=== PATIENT | female | born 1985 | race Caucasian/White ===

== ENCOUNTER 2017-10-10 10:04 | Emergency (ER) | payer OTHER ==
[2017-10-10 10:13] VITALS: O2SAT 100
[2017-10-10] MEDS ORDERED: Pantoprazole 40 mg EC Tab PO STA (10:39)
[2017-10-10] MEDS ORDERED: Sodium Chloride 0.9% 1,000 ML IV ONE (10:39)
[2017-10-10 10:40] LABS: SQUAMOUS EPITHIAL 2 /hpf (0-5); URINE BILIRUBIN NEGATIVE (NEGATIVE); URINE BLOOD NEGATIVE (NEGATIVE); URINE CLARITY Clear (Clear); URINE COLOR Yellow (YELLOW); URINE GLUCOSE (UA) NORMAL (Normal); URINE LEUKOCYTE ESTERASE NEG Leu/uL (Negative); URINE NITRATE NEGATIVE (NEGATIVE); URINE PROTEIN NEGATIVE (NEGATIVE); URINE UROBILINOGEN NORMAL mg/dL (0.2-1.0)
[2017-10-10 10:41] LABS: HCG,QUALITATIVE URINE NEGATIVE (NEGATIVE)
[2017-10-10] MEDS ORDERED: Sodium Chloride 0.9% 1,000 ML ONE (10:42)
[2017-10-10] MEDS ORDERED: Pantoprazole 40 mg EC Tab PO ONE (10:52)
--- NOTE | 2017-10-10 10:58 | C.PDOC ---
History Of Present Illness 31 year old female w/PMhx of gastritis presents to the ED for evaluation of epigastric abdominal pain which has been intermittent for the past 5-6 days. Patient states pain is associated with nausea and few sporadic episodes of non- bilious vomiting. Otherwise, Patient denies fever, chills, recent illness, sore throat, CP, SOB, dysnea, diaphoresis, palpitation, hematemesis, melena, dysuria , hematuria, back pain. Ambulate to Ed for evaluation, not in nay apparent distress.. Time Seen by Provider: 10/10/17 10:21 Chief Complaint (Nursing): Abdominal Pain History Per: Patient History/Exam Limitations: no limitations Onset/Duration Of Symptoms: Intermittent Episodes Current Symptoms Are (Timing): Still Present Location Of Pain/Discomfort: Epigastric Radiation Of Pain To:: None Quality Of Discomfort: "Pain" Associated Symptoms: Nausea, Vomiting Additional History Per: Patient Past Medical History Reviewed: Historical Data, Nursing Documentation, Vital Signs Vital Signs: Last Vital Signs Temp 97.5 F L 10/10/17 12:58 Pulse 59 L 10/10/17 12:58 Resp 20 10/10/17 12:58 BP 99/64 L 10/10/17 12:58 Pulse Ox 100 10/10/17 12:58 - Medical History PMH: Gastritis Surgical History: No Surg Hx Family History: States: Unknown Family Hx - Social History Hx Tobacco Use: No Hx Alcohol Use: No Hx Substance Use: No - Immunization History Hx Tetanus Toxoid Vaccination: No Hx Influenza Vaccination: No Hx Pneumococcal Vaccination: No Review Of Systems Except As Marked, All Systems Reviewed And Found Negative. Constitutional: Negative for: Fever, Chills Cardiovascular: Negative for: Chest Pain, Palpitations, Edema, Light Headedness Respiratory: Negative for: Cough, Shortness of Breath, Wheezing Gastrointestinal: Positive for: Nausea, Vomiting, Abdominal Pain (epigastric ) Genitourinary: Negative for: Dysuria, Hematuria Musculoskeletal: Negative for: Neck Pain, Back Pain Skin: Negative for: Rash Neurological: Negative for: Altered Mental Status Physical Exam - Physical Exam Appears: Non-toxic, No Acute Distress Skin: Normal Color, Warm, Dry Head: Atraumatic, Normacephalic Eye(s): bilateral: Normal Inspection Oral Mucosa: Moist Neck: Supple Chest: Symmetrical, No Deformity, No Tenderness Cardiovascular: Rhythm Regular, No Murmur Respiratory: Normal Breath Sounds, No Rales, No Rhonchi, No Wheezing Gastrointestinal/Abdominal: Soft, Tenderness (moderate, epigastric ), No Guarding, No Rebound Extremity: Normal ROM, Capillary Refill (less than 2 seconds ) Neurological/Psych: Oriented x3, Normal Speech, Normal Cognition Gait: Steady ED Course And Treatment - Laboratory Results Result Diagrams: 10/10/17 11:04 10/10/17 11:04 Lab Interpretation: Normal ECG: Interpreted By Me, Viewed By Me ECG Rhythm: Sinus Bradycardia Interpretation Of ECG: Sinus gricel@52/min, NAD, no acute T wave or ST-T changes. O2 Sat by Pulse Oximetry: 100 (on RA) Pulse Ox Interpretation: Normal Progress Note: Bloodwork and urinalysis ordered and reviewed. Carafate PO, Pepcid IVP, Protonix PO, Zofran IVP and IV Fluids administered. Pt was OBS in Ed for 3 hours and remained stable. On re-evaluation, pt is afebrile, hemodynamicaly stable. Non-toxic. Tolerate Po well in Ed. Ambulatory in Ed with stable gait. PulseOx 100% RA. ENT: no acute findings. neck: Supple, (-) midline tenderness, (-) JVD, (-) carotid bruits B/L. Lungs: CTA B/L, BS equal B /L. CVS: (+)S1S2, reg. Abd: benign, (-) guarding or rebound, (-) localized tenderness. Back: (-) CVA tenderness. Blood work review, appears normal. UA normal, (-) preg. Pt has clinical findings c/w epigastric pain. Pt advised. ref. to F/u with PMD, GI in2 -3 days for re-eavl. return to ED if any worsening ornew changes. Disposition Counseled Patient/Family Regarding: Studies Performed, Diagnosis, Need For Followup, Rx Given - Disposition Referrals: Juan Oglesby MD [Staff Provider] - Luke Balderas MD [Medical Doctor] - Disposition: HOME/ ROUTINE Disposition Time: 12:23 Condition: STABLE Additional Instructions: DIET RESTRICTION FOR `1-2 DAYS ENCOURAGE FLUIDS TAKE MEDICATION PRESCRIBED FOLLOW UP WITH PMD, GI IN 2-3 DAYS FOR RE-EVALUATION. RETURN TO ED IF ANY WORSENING OR NEW CHANGES. Prescriptions: Famotidine [Pepcid] 20 mg PO BID #14 tab Mag Hydrox/Aluminum Hyd/Simeth [Mag-Al Plus Xs Suspension] 30 ml PO BID #350 ml Pantoprazole Sodium [Protonix] 40 mg PO DAILY #14 tablet. Instructions: Epigastric Pain (ED) Forms: [employer] (Upper Sorbian), Work Excuse Print Language: VENEZUELAN - Clinical Impression Clinical Impression: Epigastric abdominal pain - PA / BRICK BAKER / Resident Statement MD/DO has reviewed & agrees with the documentation as recorded. - Scribe Statement The provider has reviewed the documentation as recorded by the Scribe (Kathleen Thomas) All medical record entries made by the Scribe were at my direction and personally dictated by me. I have reviewed the chart and agree that the record accurately reflects my personal performance of the history, physical exam, medical decision making, and the department course for this patient. I have also personally directed, reviewed, and agree with the discharge instructions and disposition.
[2017-10-10 11:13] LABS: BASO % 0.5 % (0.0-2.0); EOS # 0.1 K/uL (0.0-0.7); EOS % 1.9 % (0.0-4.0); HEMOGLOBIN 12.2 g/dL (11.0-16.0); LYMPH # 1.7 K/uL (1.0-4.3); LYMPH % 25.1 % (20.0-40.0); MEAN CELL VOLUME 90.5 fL (81.0-99.0); MEAN CORPUSCULAR HEMOGLOBIN 30.2 pg (27.0-31.0); MEAN CORPUSCULAR HGB CONC 33.4 g/dL (33.0-37.0); MEAN PLATELET VOLUME 10.1 fL (7.2-11.7); MONO # 0.5 K/uL (0.0-0.8); MONO % 7.5 % (0.0-10.0); NEUT # 4.3 K/uL (1.8-7.0); NRBC % 0.1 % (0.0-2.0); RBC 4.04 Mil/uL (3.80-5.20); RED CELL DISTRIBUTION WIDTH 13.5 % (11.5-14.5); WHITE BLOOD COUNT 6.7 K/uL (4.8-10.8)
[2017-10-10 11:33] LABS: ALB/GLOB RATIO 1.2 (1.0-2.1); ALBUMIN 4.2 g/dL (3.5-5.0); ALT/SGPT 35 U/L (9-52); AST/SGOT 26 U/L (14-36); BLOOD UREA NITROGEN 8 mg/dL (7-17); CALCIUM 8.5 mg/dl (8.6-10.4); GFR AFRICAN-AMERICAN > 60; GFR NON-AFRICAN AMERICAN > 60; LIPASE 38 U/L (23-300)
[2017-10-10 12:59] VITALS: BP 99/64; PULSE 59; RESP 20; TEMP 97.5
[2017-10-10] MEDS ORDERED: Alum-Mag Hydrox-Simethicone Susp (30 mL) PO STA (13:01)
[2017-10-10] MEDS ORDERED: Aluminum Hydroxide/Magnesium Hydroxide Susp (30 mL) ONE (13:09)
--- NOTE | 2017-10-11 14:59 | CARD ---
APPROVED REPORT EKG Measurement Heart [id number] <Conclusion> Sinus bradycardia with sinus arrhythmia Otherwise normal ECG
== END 2017-10-10 14:29 | disposition home or self-care (01) ==
LOC: C.ER 10:04
DX: R10.13 Epigastric pain (principal)
CPT/HCPCS: 80053; 81001; 83690; 84703; 85025; 93005; 96361; 96374; 96375; 99285; J2405; J7040

== ENCOUNTER 2017-11-21 07:05 | Day surgery (SDC) | payer OTHER ==
[2017-11-21 07:46] VITALS: BMI 25.4
[2017-11-21 08:31] VITALS: O2SAT 100
[2017-11-21] MEDS ORDERED: Propofol 10 mg/ml Inj (20 ML) ONE (09:36)
[2017-11-21] MEDS ORDERED: Midazolam 2 MG/2 ML VIAL ONE (09:36)
[2017-11-21] MEDS ORDERED: Belladonna-Phenobarbital PO STA (09:38)
--- NOTE | 2017-11-21 09:38 | CP.SDSHP ---
Same Day Surgery H & P - History Proposed Procedure: EGD Pre-Op Diagnosis: SEE NOTES - Previous Medical/Surgical History Misc: Other Pain: 4.Moderate Pain - Allergies Allergies: Allergies FISH Allergy (Mild, Verified 11/21/17 07:45) RASH DUST Allergy (Mild, Uncoded 11/21/17 07:45) RASH KIWI Allergy (Mild, Uncoded 11/21/17 07:45) RASH - Physical Exam General Appearance: N Vital Signs: Vital Signs 11/21/17 08:10 Temperature 98.2 F Pulse Rate 80 Respiratory 20 Rate Blood Pressure 105/70 O2 Sat by Pulse 100 Oximetry Mental Status: Alert & Oriented x3 Neuro: WNL Heart: WNL Lungs: WNL GI: Other - {Optional Preform as Required} Breast: WNL Abdomen: Other Rectal: Other Integument: WNL : WNL Ortho: WNL ENT: WNL - Impression Pt. Evaluated Today:Candidate for Anesthesia & Procedure: Yes - Date & Time Time: 09:38 Short Stay Discharge - Short Stay Discharge Admitting Diagnosis/Reason for Visit: FUNCTIONAL DYSPEPSIA Disposition: HOME/ ROUTINE
[2017-11-21] MEDS ORDERED: Lidocaine Hydrochloride 5 ML INJ ONE (09:42)
[2017-11-21] MEDS ORDERED: Lactated Ringer's 500 ML IV SCH (09:45)
[2017-11-21 10:50] VITALS: TEMP 98
[2017-11-21 12:38] VITALS: BP 112/68; PULSE 66; RESP 14
== END 2017-11-21 11:05 | disposition home or self-care (01) ==
LOC: C.ENDO 07:05
PROVIDERS: ATTEND Specialist
DX: K29.50 Unspecified chronic gastritis without bleeding (principal); K26.9 Duodenal ulcer, unspecified as acute or chronic, without hemorrhage or perforation; K92.89 Other specified diseases of the digestive system; K30 Functional dyspepsia; R11.2 Nausea with vomiting, unspecified; K44.9 Diaphragmatic hernia without obstruction or gangrene
CPT/HCPCS: 43239; 84703; 88305; J2250; J2704; J7120

== ENCOUNTER 2018-04-24 07:44 | Day surgery (SDC) | payer OTHER ==
[2018-04-24 08:19] VITALS: O2SAT 100
[2018-04-24] MEDS ORDERED: Propofol 10 mg/ml Inj (20 ML) ONE (09:08)
--- NOTE | 2018-04-24 09:08 | CP.SDSHP ---
Same Day Surgery H & P - History Proposed Procedure: EGD Pre-Op Diagnosis: SEE NOTES - Previous Medical/Surgical History Neuro: Other Misc: Other Pain: 4.Moderate Pain - Allergies Allergies: Allergies FISH Allergy (Mild, Verified 11/21/17 07:45) RASH DUST Allergy (Mild, Uncoded 11/21/17 07:45) RASH KIWI Allergy (Mild, Uncoded 11/21/17 07:45) RASH - Physical Exam General Appearance: N Vital Signs: Vital Signs 04/24/18 08:12 Temperature 97.8 F Pulse Rate 66 Respiratory 18 Rate Blood Pressure 100/60 O2 Sat by Pulse 100 Oximetry Mental Status: Alert & Oriented x3 Neuro: WNL Heart: WNL Lungs: WNL GI: Other - {Optional Preform as Required} Breast: WNL Abdomen: Other Integument: WNL : WNL Ortho: WNL ENT: WNL - Impression Pt. Evaluated Today:Candidate for Anesthesia & Procedure: Yes - Date & Time Time: 09:08 Short Stay Discharge - Short Stay Discharge Admitting Diagnosis/Reason for Visit: GASTRIC ULCER, UNSP ACUTE OR CHRONIC, W /O HEMOR Disposition: HOME/ ROUTINE
[2018-04-24] MEDS ORDERED: Belladonna-Phenobarbital PO STA (09:09)
[2018-04-24] MEDS ORDERED: Lactated Ringer's 1,000 ML IV ONE (09:10)
[2018-04-24 09:43] VITALS: TEMP 97.9
[2018-04-24 10:21] VITALS: BP 101/71; PULSE 60; RESP 14
== END 2018-04-24 10:30 | disposition home or self-care (01) ==
LOC: C.ENDO 07:44
PROVIDERS: ATTEND Specialist
DX: K25.9 Gastric ulcer, unspecified as acute or chronic, without hemorrhage or perforation (principal); K29.70 Gastritis, unspecified, without bleeding; K44.9 Diaphragmatic hernia without obstruction or gangrene; K20.9 Esophagitis, unspecified
CPT/HCPCS: 43239; 84703; 88305; 88342; J2001; J2704; J3010; J7120

== ENCOUNTER 2018-04-26 17:21 | Emergency (ER) | payer OTHER ==
[2018-04-26] MEDS ORDERED: Sodium Chloride 0.9% 1,000 ML IV ONE (18:27)
[2018-04-26] MEDS ORDERED: Sodium Chloride 0.9% 1,000 ML ONE (18:50)
[2018-04-26 18:58] LABS: SQUAMOUS EPITHIAL 5 /hpf (0-5); URINE BACTERIA OCC (<OCC); URINE BILIRUBIN NEGATIVE (NEGATIVE); URINE BLOOD NEGATIVE (NEGATIVE); URINE CLARITY Clear (Clear); URINE COLOR Straw (YELLOW); URINE GLUCOSE (UA) NORMAL (Normal); URINE LEUKOCYTE ESTERASE 3+ Leu/uL (Negative); URINE PROTEIN NEGATIVE (NEGATIVE); URINE UROBILINOGEN NORMAL mg/dL (0.2-1.0)
[2018-04-26 19:02] LABS: BASO # 0.1 K/uL (0.0-0.2); BASO % 0.6 % (0.0-2.0); EOS # 0.2 K/uL (0.0-0.7); EOS % 1.8 % (0.0-4.0); HEMOGLOBIN 12.5 g/dL (11.0-16.0); LYMPH # 2.5 K/uL (1.0-4.3); MEAN CELL VOLUME 90.4 fL (81.0-99.0); MEAN CORPUSCULAR HEMOGLOBIN 30.7 pg (27.0-31.0); MEAN PLATELET VOLUME 10.6 fL (7.2-11.7); MONO # 0.7 K/uL (0.0-0.8); MONO % 7.5 % (0.0-10.0); NEUT # 6.4 K/uL (1.8-7.0); NEUT % 65.1 % (50.0-75.0); RBC 4.06 Mil/uL (3.80-5.20); RED CELL DISTRIBUTION WIDTH 13.3 % (11.5-14.5); WHITE BLOOD COUNT 9.8 K/uL (4.8-10.8)
[2018-04-26 19:04] LABS: ALBUMIN 4.7 g/dL (3.5-5.0); BLOOD UREA NITROGEN 12 mg/dL (7-17); CALCIUM 9.5 mg/dl (8.6-10.4); GFR AFRICAN-AMERICAN > 60; GFR NON-AFRICAN AMERICAN > 60
[2018-04-26 19:05] LABS: ALB/GLOB RATIO 1.5 (1.0-2.1); ALT/SGPT 62 U/L (9-52); AST/SGOT 45 U/L (14-36); BILIRUBIN,DIRECT 0.3 mg/dL (0.0-0.4); LIPASE 51 U/L (23-300)
[2018-04-26 19:11] LABS: INR 1.1; PROTHROMBIN TIME 11.5 SECONDS (9.7-12.2)
--- NOTE | 2018-04-26 19:36 | C.PDOC ---
History Of Present Illness 32 y/o female comes in to the ED with complaints of abdominal pain for the last few days. Patient states she recently had an endoscopy with Dr. Dowd showing ulcers. She denies any associated fevers, vomiting, or diarrhea. Time Seen by Provider: 04/26/18 18:25 Chief Complaint (Nursing): Abdominal Pain History Per: Patient History/Exam Limitations: no limitations Onset/Duration Of Symptoms: Days Current Symptoms Are (Timing): Still Present Past Medical History Reviewed: Historical Data, Nursing Documentation, Vital Signs Vital Signs: Last Vital Signs Temp 98.5 F 04/26/18 21:14 Pulse 64 04/26/18 21:14 Resp 16 04/26/18 21:14 BP 108/72 04/26/18 21:14 Pulse Ox 100 04/26/18 21:51 - Medical History PMH: Asthma (ENVIROMENTAL ALLERGIES SOB AT TIMES), Fractures (LEFT HUMERUS MANY YEARS AGO), Gastritis, Migraine Denies: Colonic Polyps, Chronic Kidney Disease, Sleep Apnea Surgical History: Endoscopy Family History: States: Unknown Family Hx - Social History Hx Tobacco Use: No Hx Alcohol Use: No Hx Substance Use: No - Immunization History Hx Tetanus Toxoid Vaccination: No Hx Influenza Vaccination: No Hx Pneumococcal Vaccination: No Review Of Systems Except As Marked, All Systems Reviewed And Found Negative. Constitutional: Negative for: Fever, Chills Gastrointestinal: Positive for: Abdominal Pain. Negative for: Vomiting, Diarrhea, Hematochezia Genitourinary: Negative for: Dysuria Musculoskeletal: Negative for: Back Pain Physical Exam - Physical Exam Appears: Non-toxic, No Acute Distress Skin: Normal Color, Warm, Dry Head: Atraumatic, Normacephalic Eye(s): bilateral: Normal Inspection, PERRL, EOMI Oral Mucosa: Moist Neck: Normal ROM Chest: Symmetrical Cardiovascular: Rhythm Regular, No Murmur Respiratory: Normal Breath Sounds, No Rales, No Rhonchi, No Wheezing Gastrointestinal/Abdominal: Soft, Tenderness (to epigastrium), No Guarding, No Rebound Back: Normal Inspection Extremity: Bilateral: Atraumatic, Normal ROM Neurological/Psych: Oriented x3, Normal Speech ED Course And Treatment - Laboratory Results Result Diagrams: 04/26/18 18:48 04/26/18 18:48 O2 Sat by Pulse Oximetry: 100 (RA) Pulse Ox Interpretation: Normal Medical Decision Making Medical Decision Making: Impression: Upper abdominal pain, known hx of ulcers ro post endoscopy complication/perft Initial Plan: --Bilirubin --Lipase --CMP --CBC --PTT --Prothrombin time --Urinalysis --Urine HCG --IV fluids --Zofran 4 mg IVP --Protonix 40 mg IVP Case discussed with Dr. Dowd, who agrees with management and requests CT Abd/ Pelvis with IV contrast pt reassesed symptoms impoving. pain improved, mild pain. updated dr dowd. pt asking for dc home as needs to get home to child. urine treated as she reprots urinary symptoms Disposition - Disposition Referrals: Albino Dowd [Staff Provider] - Disposition: HOME/ ROUTINE Disposition Time: 21:50 Condition: STABLE Additional Instructions: please follow up with your doctor/clinic. return to er with worsening symptoms or concerns. Prescriptions: Nitrofurantoin Macrocrystals [Macrobid] 100 mg PO BID #14 cap Sucralfate [Carafate] 1 gm PO BID PRN #28 tablet PRN Reason: Indigestion / Heartburn Instructions: Urinary Tract Infections in Adults, Acute Abdomen (Belly Pain) Forms: [employer] (Kosovan) - Clinical Impression Clinical Impression: Abdominal pain, UTI (urinary tract infection) - Scribe Statement The provider has reviewed the documentation as recorded by the Scribe (Gabriela Lilly) Provider Attestation: All medical record entries made by the Scribe were at my direction and personally dictated by me. I have reviewed the chart and agree that the record accurately reflects my personal performance of the history, physical exam, medical decision making, and the department course for this patient. I have also personally directed, reviewed, and agree with the discharge instructions and disposition.
[2018-04-26] MEDS ORDERED: Iodixanol 320 MG/ML 100 ML BOTTLE IV ONE (19:51)
[2018-04-26 21:16] VITALS: BP 108/72; PULSE 64; RESP 16; TEMP 98.5
[2018-04-26 21:51] VITALS: O2SAT 100
--- NOTE | 2018-04-27 09:19 | CT ---
Date of service: 04/26/2018 PROCEDURE: CT Abdomen and Pelvis with contrast HISTORY: upper abd pain s/p endoscopy COMPARISON: None. TECHNIQUE: Contrast dose: 100 mL Visipaque 320 Radiation dose: Total exam DLP = 255.22 mGy-cm. This CT exam was performed using one or more of the following dose reduction techniques: Automated exposure control, adjustment of the mA and/or kV according to patient size, and/or use of iterative reconstruction technique. FINDINGS: LOWER THORAX: Unremarkable. LIVER: Unremarkable. No gross lesion or ductal dilatation. GALLBLADDER AND BILE DUCTS: Unremarkable. PANCREAS: Unremarkable. No gross lesion or ductal dilatation. SPLEEN: Unremarkable. ADRENALS: Unremarkable. No mass. KIDNEYS AND URETERS: Unremarkable. No hydronephrosis. No solid mass. VASCULATURE: Unremarkable. No aortic aneurysm. BOWEL: Unremarkable. No obstruction. No gross mural thickening. APPENDIX: Normal appendix. PERITONEUM: No pneumoperitoneum. No ascites. Very small umbilical hernia containing only mesenteric fat. LYMPH NODES: Unremarkable. No enlarged lymph nodes. BLADDER: Unremarkable. REPRODUCTIVE: Unremarkable uterus. Intrauterine device noted. Right ovarian peripherally enhancing cyst slightly irregular measuring 2.4 cm. This may represent an involuting or ruptured ovarian cyst. There is however no free fluid seen in the cul-de-sac. BONES: No acute fracture. OTHER FINDINGS: None. IMPRESSION: No acute abnormality. Probable involuting or ruptured right ovarian follicular cyst. Intrauterine device noted. No pneumoperitoneum. Very small umbilical hernia containing mesenteric fat. The preliminary findings for this examination were reported by [employer] at 9:42 p.m. on 04/26/2018.. There is concurrence of this report with the preliminary findings.
== END 2018-04-26 22:01 | disposition home or self-care (01) ==
LOC: C.ER 17:21
DX: N39.0 Urinary tract infection, site not specified (principal); R10.13 Epigastric pain
CPT/HCPCS: 74177; 80053; 81001; 82248; 83690; 84703; 85025; 85610; 85730; 96374; 96375; 99285; C9113; J2405; J7030; Q9967

== ENCOUNTER 2018-05-09 11:24 | Emergency (ER) | payer OTHER ==
[2018-05-09 11:30] VITALS: RESP 18
--- NOTE | 2018-05-09 11:58 | C.PDOC ---
History Of Present Illness 32 y/o female with ulcers presents to ED with diffuse lower back pain, left side worse than right, that radiates down left leg. pt sts she lifted a small box the other day. pt reports similar symptoms though not as severe as this time. pt took some tylenol with no improvement. denies any saddle anesthesia, no bladder or bowel dysfunction, no numbness or tingling. Time Seen by Provider: 05/09/18 11:35 Chief Complaint (Nursing): Back Pain History Per: Patient History/Exam Limitations: no limitations Onset/Duration Of Symptoms: Days (2) Current Symptoms Are (Timing): Worse Quality Of Discomfort: "Pain" Severity: Severe Previous Symptoms: Back Pain Associated Symptoms: denies: Incontinence, New Weakness, New Numbness Exacerbating Factor(s): Turning, Movement, Sitting Past Medical History Reviewed: Historical Data, Nursing Documentation, Vital Signs Vital Signs: Last Vital Signs Temp 98.1 F 05/09/18 13:58 Pulse 66 05/09/18 13:58 Resp 18 05/09/18 13:58 BP 102/68 05/09/18 13:58 Pulse Ox 98 05/12/18 19:11 - Medical History PMH: Asthma (ENVIROMENTAL ALLERGIES SOB AT TIMES), Fractures (LEFT HUMERUS MANY YEARS AGO), Gastritis, Gastrointestinal Ulcer, Migraine Denies: Colonic Polyps, Chronic Kidney Disease, Sleep Apnea Surgical History: Endoscopy Family History: States: Unknown Family Hx - Social History Hx Tobacco Use: No Hx Alcohol Use: No Hx Substance Use: No - Immunization History Hx Tetanus Toxoid Vaccination: No Hx Influenza Vaccination: No Hx Pneumococcal Vaccination: No Review Of Systems Constitutional: Negative for: Fever, Chills Respiratory: Negative for: Cough, Shortness of Breath Gastrointestinal: Negative for: Nausea, Vomiting, Abdominal Pain, Diarrhea, Constipation Genitourinary: Negative for: Dysuria, Incontinence Musculoskeletal: Positive for: Back Pain, Leg Pain (left) Neurological: Negative for: Weakness, Numbness Physical Exam - Physical Exam Appears: Non-toxic, In Acute Distress Skin: Warm, Dry Head: Atraumatic, Normacephalic Neck: Normal ROM, No Midline Cervical Tenderness, No Paracervical Tenderness Chest: Symmetrical, No Deformity, No Tenderness Cardiovascular: Rhythm Regular, No Murmur Respiratory: No Decreased Breath Sounds, No Wheezing Gastrointestinal/Abdominal: Soft, No Tenderness, No Distention, No Guarding Back: Normal Inspection, Vertebral Tenderness (lumbar), Paraspinal Tenderness ( bilateral lumbar area), Other (left sciatic notch tenderness) Extremity: Normal ROM, No Tenderness, No Pedal Edema, No Calf Tenderness Extremity: Bilateral: Atraumatic Pulses: Left Dorsalis Pedis: Normal, Right Dorsalis Pedis: Normal Neurological/Psych: Oriented x3, Normal Speech, Normal Cognition, Normal Motor, Normal Sensation ED Course And Treatment O2 Sat by Pulse Oximetry: 98 Medical Decision Making Medical Decision Making: pt with obvious discomfort; plan- ucg, tylenol, lidoerem, xray ls spine. toradol and protonix (due to hx ulsers). no muscle relaxant given in ed since pt drove to ed and unable to get someone to drive her home. 1348 pt with mildly decreased pain. ls spine xray neg for acute pathology, shows pt to be constipated. will d/c pt with flexeril, tylenol and pmd f/u. recommend outpatient ls spine mri and physcial therapy. Disposition Counseled Patient/Family Regarding: Studies Performed, Diagnosis, Need For Followup, Rx Given - Disposition Disposition: HOME/ ROUTINE Disposition Time: 13:49 Condition: GOOD Additional Instructions: Please remove lidoderm patch in 12 hours. Take Tylenol as prescribed. Take muscle relaxant up to three times a day(every 8 hours)- do not drive or operate machinery when taking this medication. Follow up with your primary care doctor- recommend outpatient mri of lumbar spine and referral to physical therapy. You are also constipated- increase fiber in diet, and drink more water. Take colace as directed. Prescriptions: Acetaminophen [Tylenol 325mg tab] 650 mg PO Q4 #50 tab Cyclobenzaprine [Cyclobenzaprine HCl] 10 mg PO Q8 #9 tab Docusate Sodium [Colace] 100 mg PO BID #60 capsule Instructions: Low Back Pain (DC), Sciatica Exercises Forms: General Discharge Instructions, [facility] (Marshallese), Work Excuse - Clinical Impression Clinical Impression: Low back pain
[2018-05-09] MEDS ORDERED: Lidocaine 5% Patch TD STA (12:21)
[2018-05-09] MEDS ORDERED: Lidocaine 5% Patch TD ONE (12:31)
[2018-05-09] MEDS ORDERED: Pantoprazole 40 mg EC Tab PO STA (12:57)
[2018-05-09] MEDS ORDERED: Pantoprazole 40 mg EC Tab PO ONE (13:31)
--- NOTE | 2018-05-09 13:35 | RAD ---
Date of service: 05/09/2018 PROCEDURE: Radiographs of the Lumbar Spine. HISTORY: midline back pain COMPARISON: No prior. FINDINGS: BONES: There is normal alignment of the lumbar vertebral bodies. There is normal lumbar lordosis. There is no acute fracture, spondylolysis or spondylolisthesis. Bone mineralization is normal. DISC SPACES: The disc heights are maintained. OTHER FINDINGS: There are no pathologic soft tissue calcifications. Both sacroiliac joints are normal. An IUD overlies the pelvis. There is large amount of stool in the colon. IMPRESSION: No acute fracture, spondylolysis or spondylolisthesis. No significant degenerative disc disease. Constipation.
[2018-05-09 13:58] VITALS: BP 102/68; PULSE 66; TEMP 98.1
[2018-05-09 14:24] VITALS: O2SAT 98
== END 2018-05-09 14:08 | disposition home or self-care (01) ==
LOC: C.ER 11:24
DX: M54.5 Low back pain (principal)
CPT/HCPCS: 72100; 96372; 99284; J1885

== ENCOUNTER 2019-02-07 09:05 | Day surgery (SDC) | payer OTHER ==
[2019-02-06 10:13] VITALS: BMI 29.2
[2019-02-07] MEDS ORDERED: Lactated Ringer's 1,000 ML IV ONE (11:05)
--- NOTE | 2019-02-07 11:07 | CP.SDSHP ---
Same Day Surgery H & P - History Proposed Procedure: COLONSCOPY Pre-Op Diagnosis: SEE NOTES - Previous Medical/Surgical History Misc: Other Pain: 4.Moderate Pain - Allergies Allergies: Allergies FISH Allergy (Mild, Verified 02/07/19 09:30) RASH DUST Allergy (Mild, Uncoded 02/07/19 09:30) RASH KIWI Allergy (Mild, Uncoded 02/07/19 09:30) RASH - Physical Exam General Appearance: N Vital Signs: Vital Signs 02/07/19 09:15 Temperature 97.7 F Pulse Rate 66 Respiratory 18 Rate Blood Pressure 134/42 L O2 Sat by Pulse 100 Oximetry Mental Status: Alert & Oriented x3 Neuro: WNL Heart: WNL Lungs: WNL GI: Other - {Optional Preform as Required} Breast: WNL Abdomen: Other Rectal: Other Integument: WNL : WNL Ortho: Other ENT: WNL - Impression Pt. Evaluated Today:Candidate for Anesthesia & Procedure: Yes - Date & Time Time: 11:06 Short Stay Discharge - Short Stay Discharge Admitting Diagnosis/Reason for Visit: RECTAL BLEEDING Disposition: HOME/ ROUTINE
[2019-02-07] MEDS ORDERED: Propofol 10 mg/ml Inj (20 ML) ONE ×2 (11:09)
[2019-02-07] MEDS ORDERED: Belladonna-Phenobarbital PO ONE ×2 (11:40→12:00)
[2019-02-07 11:48] VITALS: O2SAT 100
[2019-02-07 13:03] VITALS: RESP 16
[2019-02-07 13:05] VITALS: BP 106/76; PULSE 69; TEMP 98.8
== END 2019-02-07 13:30 | disposition home or self-care (01) ==
LOC: C.ENDO 09:05
PROVIDERS: ATTEND Specialist
DX: K64.8 Other hemorrhoids (principal); K58.9 Irritable bowel syndrome, unspecified
CPT/HCPCS: 45378; 84703; 88305; J2704; J7120